=== PATIENT | male | born 1960 | race Hispanic/Latino ===

== ENCOUNTER 2017-05-02 22:37 | Emergency (ER) | payer OTHER ==
[~2017-05-02] VITALS: Ht 180.3 cm; Wt 104.5 kg
[2017-05-03] MEDS ORDERED: ULTRAM50 MG PO (00:57)
[2017-05-03] MEDS ORDERED: MOTRIN600 MG PO (00:57)
[2017-05-03 01:37] LABS: ADD MIUA? NO; BILIRUBIN NEGATIVE; BLOOD NEGATIVE; COLOR YELLOW ((YELLOW)); GLUCOSE (STRIP) NEGATIVE; KETONES NEGATIVE; LEUKOCYTES NEGATIVE; NITRITE NEGATIVE; PROTEIN (STRIP) 30; SPECIFIC GRAVITY 1.035 (1.000-1.030); UROBILINOGEN 0.2 MG/DL (0.2-1.0)
[2017-05-03 01:38] LABS: UCUL ADDED? NO
[2017-05-03 01:51] VITALS: BP 119/75
== END 2017-05-03 01:49 | disposition home or self-care (01) ==
LOC: EME 22:37
PROVIDERS: Physician Assistant
DX: M54.41 Lumbago with sciatica, right side (principal); R10.31 Right lower quadrant pain
CPT/HCPCS: 81003; 99281; 99285; J1885